=== PATIENT | male | born 1985 | race Caucasian/White ===

== ENCOUNTER 2023-03-01 09:51 | Emergency (ER) | payer BC, OTHER ==
[2023-03-01] MEDS ORDERED: Lidocaine 1% w/Epinephrine 1:100K 20 ML VIAL ONE (10:02)
[2023-03-01] MEDS ORDERED: Bacitracin 1 PK ONE (10:40)
== END 2023-03-01 10:47 | disposition home or self-care (01) ==
LOC: MADERS 09:51
DX: S01.81XA Laceration without foreign body of other part of head, initial encounter (principal); W55.22XA Struck by cow, initial encounter
CPT/HCPCS: 12013